=== PATIENT | female | born 1960 | race African-American/Black ===

== ENCOUNTER → 2016-10-16 | Outpatient (CLI) | payer OTHER ==
[~2016-10-16] MED LIST: ATIVAN PO; LORTAB 5-325 M1 EACH PO; NEXIUM PO; XARELTO10 MG PO; ZOFRAN ODT4 MG PO
== END | disposition home or self-care (01) ==
LOC: CCAT 08:22
DX: M12.571 Traumatic arthropathy, right ankle and foot (principal); M25.571 Pain in right ankle and joints of right foot
CPT/HCPCS: 73700

== ENCOUNTER → 2016-11-17 | Outpatient (CLI) | payer OTHER ==
--- NOTE | ~2016-11-17 | EKG ---
PATIENT: FUNMILAYO SIMS UNIT #: [id number] Ventricular Rate: 77 BPM Atrial Rate: 77 BPM P-R Interval: 182 ms QRS Duration: 76 ms Q-T Interval: 358 ms QTC Calculation(Bezet): 405 ms P Caraway: 40 degrees Calculated R Caraway: 11 degrees Calculated T Caraway: 34 degrees Diagnosis Line: Normal sinus rhythm Diagnosis Line: Normal ECG Diagnosis Line: No previous ECGs available Diagnosis Line: Confirmed by FOZIA BROOKS MD ([id number]) on Diagnosis Line: 11/17/2016 3:52:10 PM INTERPRETING MD: TODD LEEGR
[2016-11-17 15:40] LABS: HEMATOCRIT 38.3 % (35.0-45.0); HEMOGLOBIN 12.8 gm/dL (12.0-16.0); MEAN CELL VOLUME 95.1 FL (83-96); MEAN CORPUSCULAR HEMOGLOBIN 31.8 PG (28-34); MEAN CORPUSCULAR HGB CONC 33.4 g/dL (30-36); RED BLOOD COUNT 4.03 X10e (3.90-5.30); RED CELL DISTRIBUTION WIDTH 13.2 % (11.0-15.5); WHITE BLOOD COUNT 11.9 X10e3 (4.0-10.5)
[2016-11-17 16:03] LABS: BUN/CREATININE RATIO 18.75; CALCIUM SERUM 9.2 mg/dL (8.4-10.2); CREATININE SERUM 0.8 mg/dL (0.6-1.4); GLOM FILT RATE Estimated 96.3 mL/min (>60); POTASSIUM 3.8 mmol/L (3.5-5.1)
[2016-11-17 16:40] LABS: URINE APPEARANCE CLEAR; URINE BILIRUBIN NEG (NEG); URINE BLOOD NEG (NEG); URINE COLOR YELLOW; URINE GLUCOSE NEG (NEG); URINE KETONE TRACE (NEG); URINE LEUKOCYTE ESTERASE NEG (NEG); URINE NITRATE NEG (NEG); URINE PROTEIN NEG (NEG); URINE SPECIFIC GRAVITY 1.024 (1.003-1.035)
[2016-11-17 16:42] LABS: URINE SOURCE CLEAN CATCH
[2016-11-17 16:43] LABS: CULTURE INDICATED? NO
== END | disposition home or self-care (01) ==
LOC: CAMB 14:50
PROVIDERS: Orthopaedic Surgery
DX: Z01.818 Encounter for other preprocedural examination (principal); M17.31 Unilateral post-traumatic osteoarthritis, right knee
CPT/HCPCS: 36415; 80048; 81003; 85027; 87070; 93005

== ENCOUNTER 2016-12-01 06:59 | Inpatient (IN) | payer OTHER ==
--- NOTE | ~2016-12-01 | CR18 ---
[facility] A Service of [facility] RADIOLOGY TEXT RESULTS PATIENT: FUNMILAYO SIMS LOCATION: [place] [address] : 62 UNIT #: [id number] AGE: [address]: Roberto Lei MD SEX: F ORDER DR: [id number] [facility] [address] [facility]. [place], [place] [address] [id number] MR#: [id number] Acc #: [id number] NAME: FUNMILAYO SIMS : 1960 SEX: F STUDY DATE/TIME: 12/01/2016 12:26 UNIT: [facility]OM[facility] STUDY DESCRIPTION: CR Ankle 2 Views Rt Attending Physician: Dariela Lei M.D. Referring Physician: Dariela Lei M.D. Ordering Physician: Dariela Lei M.D. Primary Care Physician: Ericka Adame M.D. MEDICAL IMAGING REPORT This report is preliminary unless electronic signature is present EXAM C-arm fluoroscopy with 2 permanent images of the right ankle 12/01/2016 HISTORY Right ankle pain. Prior right ankle fracture in 1996. Right ankle pain since 1996. Right ankle replacement. FINDINGS C-arm fluoroscopy was provided for use in the operating room. 2 spot film radiographs of the right ankle were obtained in the anterior and lateral projections and 1.48 minutes of fluoroscopy time was utilized. The exam shows placement of right ankle prosthesis. The prosthesis appears well seated. No fracture is seen. Dictated by... Gordon Pak M.D. THIS IS AN ELECTRONICALLY VERIFIED REPORT Gordon Pak M.D. at 12/11/2016 8:27 AM KOBI/shalom TD: 12/10/2016 09:45 JOB #: [id number] MEDICAL IMAGING REPORT Page 1 of 1 COPY
--- NOTE | ~2016-12-01 | HP ---
Unit #: [id number] #: [id number] Patient: FUNMILAYO SIMS [id number] [address] [place], [place] [address] [id number] MR#: [id number] NAME: FUNMILAYO SIMS ROOM: [address] Age: Sex: F Admission Date: 12/01/2016 : 1960 Attending Physician: Dariela Lei M.D. Referring Physician: Dariela Lei M.D. Primary Care Physician: Ericka Adame M.D. HISTORY AND PHYSICAL CHIEF COMPLAINT Right ankle pain. 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 She underwent removal of hardware in 1998. Three years ago she reinjured her lateral malleolus, which was treated nonoperatively in a cast and then a Cam Walker Boot. She now has had worsening pain and swelling in the ankle. She takes Tylenol and nonsteroidal anti-inflammatory medication. 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 Radiographs demonstrate endstage ankle arthritis, and MRI shows joint space narrowing with osteophyte formation and subchondral cysts in the tibia and talus. The patient is, therefore, admitted for ankle replacement. PAST MEDICAL HISTORY Remarkable for anxiety and arthritis. PAST SURGICAL HISTORY Right ankle surgery, as noted above, hysterectomy, ovariectomy, tubal ligation. HOME MEDICATIONS Ativan, hydrocodone and omeprazole. ALLERGIES None. SOCIAL HISTORY The patient is a previous smoker with a 20 pack-year smoking history. She currently does not smoke. She drinks alcohol socially. She works as a nurse. FAMILY HISTORY Unremarkable. REVIEW OF SYSTEMS Otherwise unremarkable. PHYSICAL EXAMINATION VITAL SIGNS: Height 5'6", weight 224 pounds. BMI 36. GENERAL: This is an obese female in no acute distress. HEENT: Pharynx is clear. NECK: The neck is supple without masses. Unit #: [id number] #: [id number] Patient: FUNMILAYO SMIS HEART: Heart exam reveals a regular sinus rhythm without murmurs or gallops. LUNGS: The lungs are clear. ABDOMEN: The abdomen is soft and nontender without masses or organomegaly. EXTREMITIES: Evaluation of the right foot shows a normal arch. The hind foot is neutral. Right ankle dorsiflexion is -5 degrees. Plantarflexion 30 degrees. Subtalar invasion 15, eversion 15. She has pain in the anterior tibiotalar joint. Pulses are palpated. Sensation is normal. Motor strength is normal. DIAGNOSTIC STUDIES IMAGING: Standing x-rays of the right ankle show joint space narrowing between the tibia and talus without deformity. MRI documents subchondral cysts on the tibia and talus. ADMITTING DIAGNOSIS Right ankle posttraumatic arthritis. PLAN The patient is admitted for total ankle arthroplasty. This procedure was described, along with the risks of bleeding, infection, nerve damage, the need for further surgery in the future, prolonged recovery time, deep venous thrombosis, pulmonary embolism, anesthetic complications, loosening of the prosthesis, infection of the prosthesis, need for multiple revisions in the future. She understands the above risks and agrees to proceed. Dictated by Fay Lucia/wong TD: 11/30/2016 08:49 JOB #: [id number] HISTORY AND PHYSICAL Page 1 of 1 X Roberto Lei MD X HISTORY AND PHYSICAL
--- NOTE | ~2016-12-01 | DS ---
Unit #: [id number] #: [id number] Patient: FUNMILAYO SIMS [id number] [address] [place], [place] [address] [id number] MR#: [id number] NAME: FUNMILAYO SIMS ROOM: 45 Age: 56 Sex: F Admission Date: 12/01/2016 : 1960 Discharge Date: 12/03/2016 Attending Physician: Dariela Lei M.D. Referring Physician: Dariela Lei M.D. Primary Care Physician: Ericka Adame M.D. DISCHARGE SUMMARY CHIEF COMPLAINT Right ankle pain. HISTORY OF PRESENT ILLNESS The patient is a 56-year-old female with endstage right ankle posttraumatic arthritis unresponsive to conservative care. She was admitted for ankle replacement. HOSPITAL COURSE The patient was taken to the operating room on the date of admission where she underwent right total ankle arthroplasty and gastrocnemius recession. There were no operative complications. She had a stable postoperative course. She was afebrile with stable vital signs. She was seen by physical therapy on a daily basis and instructed on how to remain nonweightbearing on her affected side. Her hematocrit was 35.8% on the second postoperative day. Wounds were healing well during dressing change on the second postoperative day. FINAL DIAGNOSIS Posttraumatic right ankle arthritis. DISPOSITION/RECOMMENDATIONS 1. The patient is discharged home. She will keep the dressing clean, dry and intact and will continue nonweightbearing for a total of 2 weeks. She will also continue ice and elevation. 2. Discharge medications remain the same as her home medications with the addition of Lincoln 5/325 mg 1 or 2 p.o. q.4-6 hours p.r.n. pain (dispense 50) and Xarelto 10 mg p.o. daily for 12 days. 3. Follow up in my office in 10-14 days for dressing change, suture removal and then application of a Cam Walker Boot so she can begin weightbearing. Dictated by... Fay Lucia/wong TD: 12/03/2016 08:56 JOB #: [id number] Unit #: [id number] #: [id number] Patient: FUNMILAYO SIMS DISCHARGE SUMMARY Page 1 of 1 X Roberto Lei MD X DISCHARGE SUMMARY
--- NOTE | ~2016-12-01 | OR ---
Unit #: [id number] #: [id number] Patient: FUNMILAYO SIMS [id number] [address] [place], [place] [address] [id number] I MR#: [id number] NAME: FUNMILAYO SIMS ROOM: 452 Date of Procedure: 12/01/2016 Admission Date: 12/01/2016 Surgeon: Dariela Lei M.D. : 1960 Attending Physician: Dariela Lei M.D. Referring Physician: Dariela Lei M.D. Primary Care Physician: Ericka Adame M.D. OPERATIVE REPORT PREOPERATIVE DIAGNOSIS Right ankle arthritis. POSTOPERATIVE DIAGNOSIS Right ankle arthritis. PROCEDURES PERFORMED 1. Right total ankle arthroplasty (74354). 2. Right gastrocnemius recession (16570). ASSISTANTS Dr. Mireles, Dr. Gaines, and SIOMARA Roy. ANESTHESIA Popliteal saphenous block and general. INDICATIONS FOR SURGERY The patient is a 56-year-old female with end-stage posttraumatic arthritis unresponsive to conservative care. Risks and benefits of fusion versus replacement have been discussed. She agrees to proceed with ankle replacement. DESCRIPTION OF PROCEDURE The patient was taken to the operating room and placed in supine position following popliteal saphenous block to the right lower extremity. A time-out was performed identifying the right ankle as the correct operative location. The IV antibiotic protocol was followed. The right ankle was then prepped and draped in the usual sterile fashion. The leg was exsanguinated and the thigh tourniquet was inflated to 300 mmHg. A 12 cm anterior longitudinal incision was made over the ankle joint. Subcutaneous tissue was carefully divided. The superficial peroneal nerve was identified and protected. The extensor retinaculum was opened. The interval between the extensor hallucis longus and anterior tibial tendons was then entered. The neurovascular bundle was meticulously dissected and retracted laterally. The ankle joint capsule was opened longitudinally and the distal tibia was exposed with subperiosteal dissection. The [employer]ecy system was utilized for ankle replacement. The patient's specific tibial guide was placed on the surface of the tibia and pinned into place under C-arm fluoroscopic control. 4 pins were placed and then a coronal alignment guide was placed. A size 2 tibia was deemed to be corrected. The 2 drill holes in the corners of the distal tibial Unit #: [id number] #: [id number] Patient: FUNMILAYO SIMS cut were made. The #2 tibial cutting guide was then pinned into place and the tibial and talar cuts were both made with the ankle held in neutral dorsiflexion. The guides were removed. The tibial cut bone was removed with the screw. The tibial trial was placed and a size 2 was found to be appropriate. The 3 punches were placed. Attention was then directed to the talus. The talar sizing guide was placed and pinned into place under C-arm fluoroscopic control. The talar cutting guide was then placed and the 2 T-handle screws were placed. The posterior talar cut was made and the anterior neck cuts were milled. The talar trial was placed and found to fit appropriately. The 2 drill holes were then placed through the talar trial. The wound was copiously irrigated. The medial and lateral gutters were cleared off all osteophytic tissue using a rongeur. The #2 tibial component was then impacted into place. The #2 talar component was impacted into place and a 6 mm poly was placed. The ankle was stable, but the ankle did not reach neutral dorsiflexion. Therefore, a gastrocnemius recession was required. A 6 cm incision was made in the posteromedial mid calf longitudinally. The subcutaneous tissue was opened. The deep tissue and fascia were opened and the interval between the gastrocnemius fascia and soleus was developed. The gastrocnemius fascia was then cut transversely with Mayers scissors while the sural nerve was protected with an Army-Moodus. The ankle dorsiflexion improved to about 10 degrees of dorsiflexion. Wounds were copiously irrigated. A 3-minute dilute Betadine wash was applied to the ankle and then lavaged with normal saline. The ankle joint capsule was closed meticulously with 2-0 Vicryl esecae-ni-ifeft sutures. The extensor retinaculum was closed with 2-0 Vicryl vztflh-to-tmozn sutures. Subcutaneous tissue was closed with 3-0 Vicryl and skin was closed with 3-0 nylon horizontal mattress sutures. Xeroform gauze, dressing, sponges, Webril, and a posterior fiberglass splint were applied. The patient was then transported to the recovery room in stable condition. ESTIMATED BLOOD LOSS Minimal. COMPLICATIONS None. SPECIMENS None. TOURNIQUET TIME Was 95 minutes. Dictated byFay Wood/richard TD: 12/02/2016 05:15 JOB #: [id number] Unit #: [id number] #: [id number] Patient: BACHELOR,FUNMILAYO OPERATIVE REPORT Page 1 of 1 X Roberto Lei MD X PROCEDURE OPERATIVE NOTE
[~2016-12-01 06:59] MED LIST changes: -LORTAB 5-325 M1 EACH PO; -XARELTO10 MG PO; -ZOFRAN ODT4 MG PO
[2016-12-02 03:12] LABS: HEMATOCRIT 35.7 % (35.0-45.0); HEMOGLOBIN 11.8 gm/dL (12.0-16.0)
[2016-12-03 03:36] LABS: HEMATOCRIT 35.8 % (35.0-45.0); HEMOGLOBIN 11.8 gm/dL (12.0-16.0)
[2016-12-03] MEDS ORDERED: XARELTO10 MG PO (11:47)
[2016-12-03] MEDS ORDERED: LORTAB 5-325 M1 EACH PO (11:47)
[2016-12-03] MEDS ORDERED: ZOFRAN ODT4 MG PO (11:48)
== END 2016-12-03 12:42 | disposition home or self-care (01) | DRG 470 ==
LOC: CSUR 06:59 → CPACUOF 10:14 → C4B 10:14 → CSUR 10:14 → CPACUOF 12:45 → C4B 15:54
PROVIDERS: Orthopaedic Surgery
PROC: 0SRF0JZ Replacement of Right Ankle Joint with Synthetic Substitute, Open Approach (ICD-10-PCS; principal; 2016-12-01 09:30)
PROC: 0L8N0ZZ Division of Right Lower Leg Tendon, Open Approach (ICD-10-PCS; 2016-12-01 09:30)
DX: M19.171 Post-traumatic osteoarthritis, right ankle and foot (principal); F41.9 Anxiety disorder, unspecified; Z87.891 Personal history of nicotine dependence; Z90.710 Acquired absence of both cervix and uterus; Z98.51 Tubal ligation status; K21.9 Gastro-esophageal reflux disease without esophagitis
CPT/HCPCS: 73600; 76000; 85014; 85018; 94760; 97116; 97161; C1776; J0690; J1100; J1170; J2250; J2405; J2550; J2795; J3010